=== PATIENT | female | born 1990 | race Caucasian/White ===

== ENCOUNTER → 2016-07-21 | Outpatient (CLI) | payer OTHER ==
[~2016-07-21] MED LIST: ACET-2267 PO; ACET1TAB43 PO; ALPR0.254 PO; AMOX500C2 PO; CITA10TA7 PO; DOCU100C37 PO; ERYT3.5O8 OD; FERR-74 PO; HYDR-3583 PO; HYDR1TAB PO; IBUP-1773 PO; IBUP-30 PO; NORG1TAB33 PO; PREN-37 PO; RANI150T90 PO
--- NOTE | 2016-07-21 19:48 | Diagnostic Imaging Report ---
INDICATION: Large for gestational age. TECHNIQUE: Multiple real-time grayscale images were obtained over the gravid uterus. COMPARISON: None FINDINGS: There is a single intrauterine . The heart rate is 123 beats per minute. The placenta is anterior. There is no placenta previa. position is cephalic. Amniotic fluid index is 14.9 cm. Biometrical measurements are as follows: Biparietal 9.4 cm, age 38 weeks 3 days. Head circumference 34.3 cm, age 39 weeks 5 days. Abdominal circumference 32.9 cm, age 36 weeks 6 days. Femur length 7.4 cm, age 37 weeks 5 days. Sonographic estimated age: 38 weeks 2 days. This compares to a gestational age of 37 weeks and 1 day based on provided CHANTAL of 08/10/16. Sonographic estimated date of delivery: 08/02/16. Estimated Weight: 3229 gm (+/- 471 gm). LMP percentile: 67%. heart rate: 123 beats per minute. number: 1 of 1. IMPRESSION: Live intrauterine . size is slightly larger than average, but within normal limits. Dictated by: Dictated on workstation # [id number]
== END ==
LOC: RAD 12:57
PROVIDERS: ATTEND Obstetrics & Gynecology
DX: O36.63X0 Maternal care for excessive fetal growth, third trimester, not applicable or unspecified (principal); Z3A.38 38 weeks gestation of pregnancy
CPT/HCPCS: 76816

== ENCOUNTER 2016-08-10 08:05 | Inpatient (IN) | payer OTHER ==
[2016-08-10] MEDS ORDERED: OXYTOCIN/NORMAL SALINE 500 ML IV SCH ×2 (08:46→13:16)
[2016-08-10] MEDS ORDERED: D5 LR IV SOLUTION 1,000 ML IV SCH (08:46)
[2016-08-10] MEDS ORDERED: LIDOCAINE/EPI 1%-1:200,000 (XYLOCAINE) 30 ML VIAL INJ PRN (09:00)
[2016-08-10] MEDS ORDERED: MINERAL OIL CONCENTRATE 99.9% 15 ML UDC TOP PRN (09:00)
[2016-08-10] MEDS ORDERED: BUPIVACAINE 0.25% 30 ML (SENSORCAINE) VIAL ONE (09:41)
[2016-08-10] MEDS ORDERED: fentaNYL INJECTION 100 MCG/2 ML AMP ONE (09:42)
[2016-08-10] MEDS ORDERED: LACTATED RINGERS 1,000 ML IV ONE ×2 (10:33)
[2016-08-10] MEDS ORDERED: fentaNYL INJECTION 100 MCG/2 ML AMP INJ ONE (10:45)
[2016-08-10] MEDS ORDERED: BUPIVACAINE 0.25% 30 ML (SENSORCAINE) VIAL INJ ONE (10:45)
[2016-08-10] MEDS ORDERED: NALOXONE 0.4 MG/ML 1 ML (NARCAN) VIAL IV PRN (10:45)
[2016-08-10] MEDS ORDERED: EPIDURAL (SUFENTA 0.6MCG/ML BUPIVA 0.125%) 100 ML BAG EPI PRN (10:45)
[2016-08-10] MEDS ORDERED: ONDANSETRON 4 MG/2 ML (SDV) Z0FRAN IV PRN (10:45)
[2016-08-10] MEDS ORDERED: LIDOCAINE PF 2% 5 ML (XYLOCAINE) VIAL ONE ×2 (11:57→12:37)
[2016-08-10] MEDS ORDERED: BENZOCAINE/MENTHOL (DERMOPLAST) 56 ML CAN TP ONE (13:08)
[2016-08-10] MEDS ORDERED: IBUPROFEN 600 MG (MOTRIN) TAB PO ONE (13:08)
[2016-08-10] MEDS: IBUPROFEN 600 MG (MOTRIN) TAB PO SCH ×2 (13:15→19:00)
[2016-08-10] MEDS ORDERED: BENZOCAINE/MENTHOL (DERMOPLAST) 56 ML CAN TP PRN (13:30)
[2016-08-10] MEDS ORDERED: TETANUS,DIPTH,PERTUSS P/F (BOOSTRIX) 0.5 ML VIAL IM ONE (13:30)
[2016-08-10] MEDS ORDERED: DIBUCAINE (NUPERCAINAL) 1% OINT 30 GM TOP PRN (13:30)
[2016-08-10] MEDS ORDERED: WITCH HAZEL(TUCKS) 40 EA JAR TOP PRN (13:30)
[2016-08-10] MEDS ORDERED: MEASLES,MUMPS,RUBELLA 1 EA INJ SQ ONE (13:30)
[2016-08-10] MEDS ORDERED: CATHETER FLUSH 10 ML SYR IV SCH ×2 (14:00)
[2016-08-10] MEDS ORDERED: FERR-84 PO (14:34)
[2016-08-10] MEDS ORDERED: PNV11TAB5 PO (14:34)
[2016-08-10] MEDS ORDERED: HYDROcodone/APAP 10 MG/325 MG (LORTAB) TAB PO ONE (15:45)
[2016-08-10] MEDS: DOCUSATE SODIUM 100 MG (COLACE) CAP PO SCH (20:11)
[2016-08-11] MEDS: IBUPROFEN 600 MG (MOTRIN) TAB PO SCH ×4 (00:33→17:33)
[2016-08-11] MEDS ORDERED: ACETAMINOPHEN 500 MG TAB (TYLENOL) PO PRN (05:15)
[2016-08-11] MEDS ORDERED: IBUP-1773 PO (06:29)
[2016-08-11] MEDS ORDERED: ACET-77 PO (06:29)
[2016-08-11] MEDS ORDERED: PRENATAL VITAMIN 1 EA TAB PO SCH (07:00)
[2016-08-11] MEDS ORDERED: FERROUS SULF 325 MG (IRON) TAB PO SCH (08:00)
[2016-08-11] MEDS: DOCUSATE SODIUM 100 MG (COLACE) CAP PO SCH (08:52)
== END 2016-08-11 20:55 | disposition home or self-care (01) | DRG 775 ==
DX: O80 Encounter for full-term uncomplicated delivery (principal); Z3A.40 40 weeks gestation of pregnancy; Z37.0 Single live birth

== ENCOUNTER 2017-02-10 07:16 | Emergency (ER) | payer OTHER ==
[~2017-02-10] VITALS: Ht 170.2 cm; Wt 95.3 kg
[~2017-02-10 07:16] MED LIST changes: +ACET-77 PO; +FERR-84 PO; +PNV11TAB5 PO
--- OUTSIDE RECORDS SUMMARY | 2017-02-10 07:22 | XMS REPORT | Continuity of Care Document ---
Author Author [facility] Organization [facility] Address Unknown Phone Unavailable Allergies Active Description Code Type Severity Reaction Onset Reported/Identified Relationship to Patient Clinical Status Yes No Known Drug Allergies [id number] Drug Allergy Unknown N/A 11/30/2007 Yes ethinyl estradiol [id number] Drug Allergy Unknown HIVES 08/10/2016 Yes ferrous fumarate [id number] Drug Allergy Unknown HIVES 08/10/2016 Yes norethindrone [id number] Drug Allergy Unknown HIVES 08/10/2016 Medications There is no data. Problems Date Dx Coded Attending Type Code Diagnosis Diagnosed By 08/28/2007 Ot 655.73 02/28/2010 Ot 918.1 02/28/2010 Ot E000.8 02/28/2010 Ot E849.8 02/28/2010 Ot E917.9 10/18/2011 Ot 217 12/17/2014 Ot 784.0 12/17/2014 Ot 611.72 12/17/2014 Ot 611.72 12/17/2014 Ot V72.63 12/17/2014 Ot V74.8 12/19/2014 ZACHERY RANDHAWA DO Ot D62 ACUTE POSTHEMORRHAGIC ANEMIA 12/19/2014 ZACHERY RANDHAWA DO Ot O99.03 ANEMIA COMPLICATING THE PUERPERIUM 12/19/2014 ZACHERY RANDHAWA DO Ot Z22.330 CARRIER OF GROUP B STREPTOCOCCUS 12/19/2014 ZACHERY RANDHAWA DO Ot Z23 ENCOUNTER FOR IMMUNIZATION 12/19/2014 ZACHERY RANDHAWA DO Ot Z37.0 SINGLE LIVE 05/28/2015 Ot 075 05/28/2015 Ot 784.0 05/28/2015 Ot 611.72 05/28/2015 Ot 611.72 05/28/2015 Ot V72.63 05/28/2015 Ot V74.8 07/24/2015 ERASMO GORE, JANY Granado Ot N20.1 CALCULUS OF URETER 08/15/2015 ERASMO GORE, JANY Granado Ot N20.1 CALCULUS OF URETER 07/23/2016 ZACHERY RANDHAWA DO Ot O36.63X0 MATERNAL CARE FOR EXCESS GROWTH, T 07/23/2016 ZACHERY RANDHAWA DO Ot Z3A.38 38 WEEKS GESTATION OF 08/09/2016 ZACHERY RANDHAWA DO Ot O36.63X0 MATERNAL CARE FOR EXCESS GROWTH, T 08/09/2016 ZACHERY RANDHAWA DO Ot Z3A.38 38 WEEKS GESTATION OF 08/11/2016 SYDNEE YOON ZACHERY Rosenbaum Ot O80 ENCOUNTER FOR FULL-TERM UNCOMPLICATED DE 08/11/2016 SYDNEE YOON ZACHERY Ilsa Ot Z37.0 SINGLE LIVE 08/11/2016 SYDNEE YOON ZACHERY Ilsa Ot Z3A.40 40 WEEKS GESTATION OF 09/13/2016 SYDNEE YOON ZACHERY Rosenbaum Ot O36.63X0 MATERNAL CARE FOR EXCESS GROWTH, T 09/13/2016 SYDNEE YOON ZACHERY Rosenbaum Ot Z3A.38 38 WEEKS GESTATION OF Procedures Code Description Performed By Performed On [id number] DELIVERY OF PRODUCTS OF CONCEPTION, EXTE 12/17/2014 [id number] DELIVERY OF PRODUCTS OF CONCEPTION, EXTE 08/10/2016 Results Test Result Range Complete urinalysis with reflex to culture - 08/10/16 08:10 Urine color determination YELLOW NRG Urine clarity determination CLEAR NRG Urine pH measurement by test strip 6.5 5-9 Specific gravity of urine by test strip 1.020 1.016- 1.022 Urine protein assay by test strip, semi-quantitative 1+ NEGATIVE Urine glucose detection by automated test strip NEGATIVE NEGATIVE Erythrocytes detection in urine sediment by light microscopy 1+ NEGATIVE Urine ketones detection by automated test strip 1+ NEGATIVE Urine nitrite detection by test strip NEGATIVE NEGATIVE Urine total bilirubin detection by test strip NEGATIVE NEGATIVE Urine urobilinogen measurement by automated test strip (mass/volume) 1 mg/dL NORMAL Urine leukocyte esterase detection by dipstick 2+ NEGATIVE Automated urine sediment erythrocyte count by microscopy (number/high power field) [HPF] NRG Automated urine sediment leukocyte count by microscopy (number/high power field ) [HPF] NRG Bacteria detection in urine sediment by light microscopy FEW NRG Squamous epithelial cells detection in urine sediment by light microscopy 5-10 NRG Crystals detection in urine sediment by light microscopy NONE NRG Casts detection in urine sediment by light microscopy NONE NRG Mucus detection in urine sediment by light microscopy SMALL NRG Complete urinalysis with reflex to culture YES NRG Bacterial urine culture - 08/10/16 08:10 URINE CULTURE RESULTS <10,000/ML NRG Complete blood count (CBC) with automated white blood cell (WBC) differential - 08/10/16 08:38 Blood leukocytes automated count (number/volume) 12.7 10*3/uL 4.3-11.0 Blood erythrocytes automated count (number/volume) 3.71 10*6/uL 4.35-5.85 Venous blood hemoglobin measurement (mass/volume) 10.6 g/dL 11.5-16.0 Blood hematocrit (volume fraction) 33 % 35-52 Automated erythrocyte mean corpuscular volume 88 [foz_us] 80-99 Automated erythrocyte mean corpuscular hemoglobin (mass per erythrocyte) 29 pg 25-34 Automated erythrocyte mean corpuscular hemoglobin concentration measurement ( mass/volume) 32 g/dL 32-36 Automated erythrocyte distribution width ratio 13.0 % 10.0-14.5 Automated blood platelet count (count/volume) 205 10*3/uL 130-400 Automated blood platelet mean volume measurement 11.2 [foz_us] 7.4-10.4 Automated blood neutrophils/100 leukocytes 77 % 42-75 Automated blood lymphocytes/100 leukocytes 15 % 12-44 Blood monocytes/100 leukocytes 7 % 0-12 Automated blood eosinophils/100 leukocytes 1 % 0-10 Automated blood basophils/100 leukocytes 0 % 0-10 Blood neutrophils automated count (number/volume) 9.7 10*3 1.8-7.8 Blood lymphocytes automated count (number/volume) 2.0 10*3 1.0-4.0 Blood monocytes automated count (number/volume) 0.8 10*3 0.0-1.0 Automated eosinophil count 0.2 10*3/uL 0.0-0.3 Automated blood basophil count (count/volume) 0.0 10*3/uL 0.0-0.1 Blood type T Indirect antibody screen panel - 08/10/16 08:38 ABO+Rh group AN NRG Transfusion band number [id number] NRG Blood group antibody screen NEGATIVE NRG Complete blood count (CBC) with automated white blood cell (WBC) differential - 08/11/16 06:56 Blood leukocytes automated count (number/volume) 11.8 10*3/uL 4.3-11.0 Blood erythrocytes automated count (number/volume) 3.51 10*6/uL 4.35-5.85 Venous blood hemoglobin measurement (mass/volume) 10.1 g/dL 11.5-16.0 Blood hematocrit (volume fraction) 31 % 35-52 Automated erythrocyte mean corpuscular volume 90 [foz_us] 80-99 Automated erythrocyte mean corpuscular hemoglobin (mass per erythrocyte) 29 pg 25-34 Automated erythrocyte mean corpuscular hemoglobin concentration measurement ( mass/volume) 32 g/dL 32-36 Automated erythrocyte distribution width ratio 13.1 % 10.0-14.5 Automated blood platelet count (count/volume) 159 10*3/uL 130-400 Automated blood platelet mean volume measurement 11.7 [foz_us] 7.4-10.4 Automated blood neutrophils/100 leukocytes 77 % 42-75 Automated blood lymphocytes/100 leukocytes 14 % 12-44 Blood monocytes/100 leukocytes 8 % 0-12 Automated blood eosinophils/100 leukocytes 1 % 0-10 Automated blood basophils/100 leukocytes 0 % 0-10 Blood neutrophils automated count (number/volume) 9.1 10*3 1.8-7.8 Blood lymphocytes automated count (number/volume) 1.6 10*3 1.0-4.0 Blood monocytes automated count (number/volume) 1.0 10*3 0.0-1.0 Automated eosinophil count 0.1 10*3/uL 0.0-0.3 Automated blood basophil count (count/volume) 0.0 10*3/uL 0.0-0.1 [facility] - 08/11/16 06:56 RH IMMUNE GLOBULIN [facility] PRSMD TRFSD 08/11/16 1720 NRG cell screen - 08/11/16 06:56 SCREEN LOT NUMBER [id number] NR Transfusion band number [id number] [facility] [id number] 1 300ug NRG Erythrocytes./1000 erythrocytes 09/09/16 NRG cell screen NEGATIVE NEGATIVE cell screen 08/12/18 NRG cell screen [id number] [facility] Lot number [id number] NR Encounters ACCT No. Visit Date/Time Discharge Status Pt. Type Provider Facility Loc./Unit Complaint [id number] 08/10/2016 08:05:00 08/11/2016 20:55:00 DIS Inpatient ZACHERY RANDHAWA DO [facility] LDRP INDUCTION [id number] 07/21/2016 12:57:00 07/21/2016 23:59:59 CLS Outpatient ZACHERY RANDHAWA DO [facility] RAD P08.1 [id number] 07/23/2015 18:15:00 07/24/2015 15:40:00 DIS Outpatient JANY ZIMMERMAN MD [facility] R URETERAL STONE [id number] 12/17/2014 08:38:00 12/19/2014 13:50:00 DIS Inpatient ZACHERY RANDHAWA DO [facility] LDRP INDUCTION [id number] 05/28/2015 09:43:00 Document Registration [id number] 05/28/2015 09:43:00 Document Registration [id number] 05/28/2015 09:43:00 Document Registration [id number] 05/28/2015 09:43:00 Document Registration [id number] 10/18/2011 05:54:00 Document Registration [id number] 10/10/2011 15:50:00 Document Registration [id number] 10/05/2011 14:48:00 Document Registration [id number] 03/03/2011 14:37:00 Document Registration [id number] 02/28/2010 11:10:00 Document Registration [id number] 08/28/2007 12:35:00 Document Registration [id number] 11/28/2006 07:28:00 Document Registration
[2017-02-10] MEDS ORDERED: ESCI10TA PO (07:40)
[2017-02-10 07:43] LABS: BILIRUBIN,URINE NEGATIVE (NEGATIVE); KETONES,URINE NEGATIVE (NEGATIVE); LEUKOCYTE ESTERASE ,URINE NEGATIVE (NEGATIVE); NITRITE,URINE NEGATIVE (NEGATIVE); PH,URINE 6 (5-9); PROTEIN,URINE NEGATIVE (NEGATIVE); UROBILINOGEN,URINE NORMAL (NORMAL)
[2017-02-10 07:51] LABS: BASOPHILS # (AUTO) 0.1 10^3/uL (0.0-0.1); BASOPHILS % (AUTO) 2 % (0-10); EOSINOPHILS # (AUTO) 0.2 10^3/uL (0.0-0.3); EOSINOPHILS % (AUTO) 4 % (0-10); LYMPHOCYTES # (AUTO) 2.1 X 10^3 (1.0-4.0); LYMPHOCYTES % (AUTO) 39 % (12-44); MEAN CORPUSCULAR HEMOGLOBIN 30 PG (25-34); MEAN CORPUSCULAR HGB CONC 33 G/DL (32-36); MEAN CORPUSCULAR VOLUME 88 FL (80-99); MEAN PLATELET VOLUME 10.1 FL (7.4-10.4); MONOCYTES # (AUTO) 0.6 X 10^3 (0.0-1.0); MONOCYTES % (AUTO) 11 % (0-12); NEUTROPHILS # (AUTO) 2.4 X 10^3 (1.8-7.8); NEUTROPHILS % (AUTO) 44 % (42-75); PLATELET COUNT 171 10^3/uL (130-400); RED BLOOD COUNT 4.31 10^6/uL (4.35-5.85); RED CELL DISTRIBUTION WIDTH 12.9 % (10.0-14.5); WHITE BLOOD COUNT 5.4 10^3/uL (4.3-11.0)
[2017-02-10] MEDS ORDERED: KETOROLAC 60 MG/2 ML VIAL IM ONE (08:00)
--- NOTE | 2017-02-10 08:05 | ED Back Pain ---
General Chief Complaint: Back Problems Stated Complaint: POSSIBLE KIDNEY STONE Nursing Triage Note: PT TO AMBULATES TO ROOM 10 CO OF R FLANK PAIN, PT STATES STARTED YESTERDAY, HAS HX OF KIDNEY STONE PAIN 08/29 Nursing Sepsis Screen: No Definite Risk Source of Information: Patient Exam Limitations: No Limitations History of Present Illness Time Seen by Provider: 08:01 Initial Comments The patient is a 26-year-old white female who relates that she began to have the right flank and low back pain late yesterday. It has continued. She has a past history of a large kidney stone about 1-1/2 years ago which ultimately required lithotripsy to pass. She has not seen any hematuria. The pain is intermittent. At times more severe and at other times more a pressure sensation. It is in the right costovertebral angle and distally at the sacroiliac area Timing/Duration: 12-24 Hours Pain/Injury Location: Back Associated Symptoms: lower back pain Allergies and Home Medications Allergies Coded Allergies: ethinyl estradiol (Verified Allergy, Unknown, HIVES, 08/10/16) ferrous fumarate (Verified Allergy, Unknown, HIVES, 08/10/16) norethindrone (Verified Allergy, Unknown, HIVES, 08/10/16) Home Medications Escitalopram Oxalate 10 Mg Tablet, 10 MG PO DAILY, (Reported) Constitutional: see HPI EENTM: no symptoms reported Cardiovascular: no symptoms reported Gastrointestinal: no symptoms reported Genitourinary: see HPI Musculoskeletal: back pain Skin: see HPI Psychiatric/Neurological: No Symptoms Reported, See HPI Past Knravmt-Xlzfqk-Upncgd Hx Patient Social History Alcohol Use: Rarely Uses Recreational Drug Use: No Smoking Status: Former Smoker Type Used: Cigarettes Former Smoker, Quit: Nov 20, 2015 Recent Foreign Travel: No Contact w/Someone Who Travel: No Recent Infectious Disease Expo: No Recent Hopitalizations: Yes Physical Abuse: No Sexual Abuse: No Immunizations Up To Date Tetanus Booster (TDap): Unknown PED Vaccines UTD: Yes Date of Influenza Vaccine: Nov 24, 2014 Seasonal Allergies Seasonal Allergies: No Surgeries History of Surgeries: Yes (BREAST BIOPSY (2011), LEEP) Surgeries: Breast, Tonsillectomy, Tubal Ligation Respiratory History of Respiratory Disorde: No Cardiovascular History of Cardiac Disorders: No Neurological History of Neurological Disord: No Reproductive System Last Menstrual Period: Jan 20, 2017 Hx Reproductive Disorders: No Sexually Transmitted Disease: No HIV/AIDS: No Female Reproductive Disorders: Denies [employer] History: Tubal Ligation Genitourinary History of Genitourinary Disor: No Gastrointestinal History of Gastrointestinal Di: No Musculoskeletal History of Musculoskeletal Dis: No Endocrine History of Endocrine Disorders: No HEENT History of HEENT Disorders: No Loss of Vision: Denies Hearing Impairment: Denies Cancer History of Cancer: No Psychosocial History of Psychiatric Problem: Yes Behavioral Health Disorders: Anxiety, Depression Suicide Risk Score: 0 Integumentary History of Skin or Integumenta: No Blood Transfusions History of Blood Disorders: No Adverse Reaction to a Blood Tr: No Family Medical History Family Medial History: Arthritis 19 MOTHER Hypercholesterolemia 19 MOTHER Hypertension 19 MOTHER Physical Exam Vital Signs Vital Sign - Last 12Hours 02/10/17 07:25 Temp 98.1 Pulse 88 Resp 18 B/P (MAP) 115/70 (85) Pulse Ox 98 Capillary Refill : NONE General Appearance: Mild Distress HEENT: Normal ENT Inspection Neck: Normal Inspection Cardiovascular: Regular Rate, Rhythm, No Edema, No Gallop, No JVD, No Murmur, Normal Peripheral Pulses Respiratory: Chest Non Tender, Lungs Clear, Normal Breath Sounds, No Accessory Muscle Use, No Respiratory Distress, Accessory Muscle Use Gastrointestinal: Normal Bowel Sounds, No Organomegaly, No Pulsatile Mass, Non Tender, Soft Back: CVA Tenderness (R) Extremity: Normal Capillary Refill, Normal Inspection, Normal Range of Motion, Non Tender, No Calf Tenderness, No Pedal Edema, Calf Tenderness Neurologic/Psychiatric: Alert, Oriented x3, No Motor/Sensory Deficits, Normal Mood/Affect, switchboard troubleshooter II-XII Norm as Tested, Abnormal Cerebellar Tests Progress/Results/Core Measures Results/Orders Lab Results Laboratory Tests Test 02/10/17 07:30 02/10/17 07:40 Range/Units Urine Color YELLOW Urine Clarity CLEAR Urine pH 6 5-9 Urine Specific [place] 1.015 L 1.016-1.022 Urine Protein NEGATIVE NEGATIVE Urine Glucose (UA) NEGATIVE NEGATIVE Urine Ketones NEGATIVE NEGATIVE Urine Nitrite NEGATIVE NEGATIVE Urine Bilirubin NEGATIVE NEGATIVE Urine Urobilinogen NORMAL NORMAL MG/DL Urine Leukocyte Esterase NEGATIVE NEGATIVE Urine RBC (Auto) NEGATIVE NEGATIVE Urine RBC NONE /HPF Urine WBC NONE /HPF Urine Squamous Epithelial Cells 10-25 H /HPF Urine Crystals NONE /LPF Urine Bacteria NEGATIVE /HPF Urine Casts NONE /LPF Urine Mucus NEGATIVE /LPF Urine Culture Indicated NO White Blood Count 5.4 4.3-11.0 10^3/uL Red Blood Count 4.31 L 4.35-5.85 10^6/uL Hemoglobin 12.7 11.5-16.0 G/DL Hematocrit 38 35-52 % Mean Corpuscular Volume 88 80-99 FL Mean Corpuscular Hemoglobin 30 25-34 PG Mean Corpuscular Hemoglobin Concent 33 32-36 G/DL Red Cell Distribution Width 12.9 10.0-14.5 % Platelet Count 171 130-400 10^3/uL Mean Platelet Volume 10.1 7.4-10.4 FL Neutrophils (%) (Auto) 44 42-75 % Lymphocytes (%) (Auto) 39 12-44 % Monocytes (%) (Auto) 11 0-12 % Eosinophils (%) (Auto) 4 0-10 % Basophils (%) (Auto) 2 0-10 % Neutrophils # (Auto) 2.4 1.8-7.8 X 10^3 Lymphocytes # (Auto) 2.1 1.0-4.0 X 10^3 Monocytes # (Auto) 0.6 0.0-1.0 X 10^3 Eosinophils # (Auto) 0.2 0.0-0.3 10^3/uL Basophils # (Auto) 0.1 0.0-0.1 10^3/uL Sodium Level 137 135-145 MMOL/L Potassium Level 4.2 3.6-5.0 MMOL/L Chloride Level 108 H 98-107 MMOL/L Carbon Dioxide Level 20 L 21-32 MMOL/L Anion Gap 9 5-14 MMOL/L Blood Urea Nitrogen 9 7-18 MG/DL Creatinine 0.70 0.60-1.30 MG/DL Estimat Glomerular Filtration Rate > 60 BUN/Creatinine Ratio 13 Glucose Level 89 70-105 MG/DL Calcium Level 8.2 L 8.5-10.1 MG/DL Total Bilirubin 0.4 0.1-1.0 MG/DL Aspartate Amino Transf (AST/SGOT) 31 5-34 U/L Alanine Aminotransferase (ALT/SGPT) 52 0-55 U/L Alkaline Phosphatase 95 40-136 U/L Total Protein 6.4 6.4-8.2 GM/DL Albumin 3.7 3.2-4.5 GM/DL My Orders Orders - ANUP COLES MD Cbc With Automated Diff (02/10/17 07:36) Comprehensive Metabolic Panel (02/10/17 07:36) Ua Culture If Indicated (02/10/17 07:36) Ct Abd/Pelvis Wo(Kidney Stone) (02/10/17 08:00) Ketorolac Injection (Toradol Injection) (02/10/17 08:00) Medications Given in ED Current Medications Medications Dose Ordered Sig/Meghann Route Start Time Stop Time Status Last Admin Dose Admin Ketorolac Tromethamine 60 mg ONCE ONCE IM 02/10/17 08:00 02/10/17 08:02 DC 02/10/17 08:14 60 MG Vital Signs/I&O Vital Sign - Last 12Hours 02/10/17 02/10/17 07:25 08:14 Temp 98.1 98.1 Pulse 88 Resp 18 B/P (MAP) 115/70 (85) Pulse Ox 98 Blood Pressure Mean: 85 Departure Communication (Admissions) Progress Notes CT scan returned with the report that there were no stones. In my view of the films multiple round calcifications of varying size were noted both right and left. These appeared to be uterine related. Impression Impression: Primary Impression: right lower quadrant pain Disposition: 01 HOME, SELF-CARE Condition: Stable/Unchanged Departure-Patient Inst. Decision time for Depature: 09:40 Referrals: BOWEN SHORE DO (PCP/Family) Primary Care Physician Add. Discharge Instructions: All discharge instructions reviewed with patient and/or family. Voiced understanding. Go to a clear liquid diet for the next 12 hours. Take ibuprofen 6-800 mg every 6 hours as needed. If symptoms persist see your provider ANUP COLES MD Feb 10, 2017 08:04
[2017-02-10 08:09] LABS: ALANINE AMINOTRANSFERASE 52 U/L (0-55); ALBUMIN 3.7 GM/DL (3.2-4.5); ANION GAP 9 MMOL/L (5-14); ASPARTATE AMINO TRANSFERASE 31 U/L (5-34); BILIRUBIN,TOTAL 0.4 MG/DL (0.1-1.0); BLOOD UREA NITROGEN 9 MG/DL (7-18); BUN/CREATININE RATIO 13; CALCIUM 8.2 MG/DL (8.5-10.1); CARBON DIOXIDE 20 MMOL/L (21-32); CHLORIDE 108 MMOL/L (98-107); GFR ESTIMATED > 60; GLUCOSE 89 MG/DL (70-105); POTASSIUM 4.2 MMOL/L (3.6-5.0); SODIUM 137 MMOL/L (135-145); TOTAL PROTEIN 6.4 GM/DL (6.4-8.2)
--- NOTE | 2017-02-10 08:59 | Diagnostic Imaging Report ---
PROCEDURE: CT urinary tract, rule out kidney stone. TECHNIQUE: Multiple contiguous axial images were obtained through the abdomen and pelvis without the use of intravenous contrast. INDICATION: Right side abdominal pain. History of kidney stones. COMPARISON: CT abdomen and pelvis without contrast 07/23/2015. FINDINGS: There is a 2 mm nonobstructing calyceal tip renal stone in the mid right kidney. The kidneys and collecting systems are otherwise negative. Calcifications in the pelvis consistent with phleboliths are stable compared to the 2016 exam. No evidence of ureteral stones or hydronephrosis. Lung bases are clear. The liver, gallbladder, pancreas, spleen, adrenals and appendix are negative on this noncontrast exam. The reproductive structures are grossly unremarkable. No free intraperitoneal air or fluid. No lymphadenopathy. No evidence of bowel obstruction. Osseous structures are unremarkable. IMPRESSION: No acute CT findings in the abdomen or pelvis. Specifically, no evidence of ureteral stones or hydronephrosis. Dictated by: Dictated on workstation # [id number]
[2017-02-10 09:44] VITALS: BP 115/70
== END 2017-02-10 09:44 | disposition home or self-care (01) ==
LOC: EDUNIT# 07:16 → ER 07:18
DX: R10.31 Right lower quadrant pain (principal); F41.9 Anxiety disorder, unspecified; F32.9 Major depressive disorder, single episode, unspecified; Z82.49 Family history of ischemic heart disease and other diseases of the circulatory system; Z87.19 Personal history of other diseases of the digestive system; Z87.891 Personal history of nicotine dependence; Z98.51 Tubal ligation status; Z90.89 Acquired absence of other organs
CPT/HCPCS: 36415; 74176; 80053; 81000; 85025; 99284

== ENCOUNTER 2019-08-29 15:17 | Emergency (ER) | payer OTHER ==
[~2019-08-29] VITALS: Ht 170 cm; Wt 92.0 kg
[~2019-08-29 15:17] MED LIST changes: -ACET-77 PO; +ACET-78 PO; +ESCI10TA PO; -FERR-74 PO; +FERR325T18 PO
[2019-08-29] MEDS ORDERED: diphenhydrAMINE 50 MG/ML INJ (BENADRYL) IV STA (16:12)
[2019-08-29] MEDS ORDERED: PROMETHAZINE INJ 25 MG/ML (PHENERGAN) AMP IVP STA (16:12)
[2019-08-29] MEDS ORDERED: NS IV 1000 ML 1,000 ML IV STA (16:12)
[2019-08-29] MEDS ORDERED: KETOROLAC 30 MG/ML VIAL IVP STA (16:12)
[2019-08-29] MEDS ORDERED: DEXAMETHASONE 10 MG/ML (DECADRON) 1 ML VIAL IV ONE (16:15)
--- NOTE | 2019-08-29 16:23 | ED Headache ---
General Chief Complaint: Head/Cervical Problems Stated Complaint: MIGRAINE X 3 DAYS Nursing Triage Note: ARRIVED VIA AMB TO ROOM 02 WITH COMPLAINTS OF MIGRAINE X3 DAYS. NO HX OF MIGRAINES. Nursing Sepsis Screen: No Definite Risk Source: patient Exam Limitations: no limitations History of Present Illness Date Seen by Provider: Aug 29, 2019 Time Seen by Provider: 15:56 Initial Comments Here with report of frontal headache that actually goes to all around the head now for the last 3 days. She has been taking ibuprofen and Aleve and Tylenol wit hout improvement. She did take 400 mg of ibuprofen at 6 AM and 1 Aleve. She repeated that at noon. That has not stopped a headache. Denies fever or chills. She does smoke. She has had some headaches before although this is longer lasting. Has nausea due to pain but no vomiting. Denies sore throat or runny nose. Denies significant nasal congestion. Timing/Duration: increasing, other (3 days) Severity/Quality: moderate, pressure Location: frontal, temporal, occipital, parietal Prior Headaches/Recent Trauma: occasional headaches Modifying Factors: improves with rest Associated Symptoms: No confusion, No fever/chills, No nasal drainage, No seizures, No stiff neck, No weakness Allergies and Home Medications Allergies Coded Allergies: ethinyl estradiol (Verified Allergy, Unknown, HIVES, 08/10/16) ferrous fumarate (Verified Allergy, Unknown, HIVES, 08/10/16) norethindrone (Verified Allergy, Unknown, HIVES, 08/10/16) Home Medications Escitalopram Oxalate 10 Mg Tablet, 10 MG PO DAILY, (Reported) Patient Home Medication List Home Medication List Reviewed: Yes Review of Systems Review of Systems Constitutional: see HPI; No chills, No fever Eyes: See HPI Ears, Nose, Mouth, Throat: see HPI; denies ear pain Respiratory: No cough, No short of breath, No wheezing Cardiovascular: no symptoms reported Gastrointestinal: No abdominal pain, No nausea, No vomiting Genitourinary: no symptoms reported Musculoskeletal: no symptoms reported All Other Systems Reviewed Negative Unless Noted: Yes Past Gwnvyyz-Qrhpex-Detzcu Hx Past Med/Social Hx: Reviewed Nursing Past Med/Soc Hx Patient Social History Alcohol Use: Occasionally Uses Recreational Drug Use: No Smoking Status: Current Everyday Smoker Type Used: Cigarettes Former Smoker, Quit: Nov 20, 2015 Recent Foreign Travel: No Contact w/Someone Who Travel: No Recent Infectious Disease Expo: No Recent Hopitalizations: Yes Immunizations Up To Date Tetanus Booster (TDap): Unknown PED Vaccines UTD: Yes Date of Influenza Vaccine: Nov 24, 2014 Seasonal Allergies Seasonal Allergies: No Past Medical History Surgeries: Yes (BREAST BIOPSY (2012), LEEP) Breast, Tonsillectomy, Tubal Ligation Respiratory: No Cardiac: No Neurological: No : No Last Menstrual Period: Aug 27, 2019 Reproductive Disorders: No 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 Sexually Transmitted Disease: No HIV/AIDS: No Genitourinary: No Gastrointestinal: No Musculoskeletal: No Endocrine: No HEENT: No Loss of Vision: Denies Hearing Impairment: Denies Cancer: No Psychosocial: Yes Anxiety, Depression Integumentary: No Blood Disorders: No Adverse Reaction/Blood Tranf: No Family Medical History Reviewed Nursing Family Hx Arthritis 19 MOTHER Hypercholesterolemia 19 MOTHER Hypertension 19 MOTHER Physical Exam Vital Signs Vital Signs - First Documented 08/29/19 15:42 Temp 36.6 Pulse 69 Resp 18 B/P (MAP) 118/78 (91) Pulse Ox 99 O2 Delivery Room Air Capillary Refill : Less Than 3 Seconds Height, Weight, BMI Height: 5'7.00" Weight: 210lbs. 2.0oz. 95.975798dg; 31.00 BMI Method:Stated General Appearance: WD/WN, no apparent distress HEENT: PERRL/EOMI, TMs normal, pharynx normal Neck: non-tender, full range of motion, supple Cardiovascular: regular rate, rhythm, no murmur Respiratory: lungs clear, normal breath sounds Gastrointestinal: non tender, soft Extremities: non-tender, normal inspection Psychiatric: alert, oriented x 3 Crainal Nerves: normal hearing, normal speech, PERRL Coordination/Gait: normal gait Motor/Sensory: no motor deficit, no sensory deficit Skin: normal color, warm/dry Progress/Results/Core Measures Results/Orders My Orders Orders - LUIS EDUARDO BLISS MD Ct Head Wo (08/29/19 16:12) Promethazine Injection (Phenergan Injec (08/29/19 16:12) Ns Iv 1000 Ml (Sodium Chloride 0.9%) (08/29/19 16:12) Ed Iv/Invasive Line Start (08/29/19 16:12) Diphenhydramine Injection (Benadryl Inje (08/29/19 16:12) Dexamethasone Injection (Decadron Inject (08/29/19 16:15) Ketorolac Injection (Toradol Injection) (08/29/19 16:12) Medications Given in ED Current Medications Medications Dose Ordered Sig/Meghann Route Start Time Stop Time Status Last Admin Dose Admin Dexamethasone Sodium Phosphate 10 mg ONCE ONCE IV 08/29/19 16:15 08/29/19 16:16 DC 08/29/19 16:31 10 MG Vital Signs/I&O 08/29/19 15:42 Temp 36.6 Pulse 69 Resp 18 B/P (MAP) 118/78 (91) Pulse Ox 99 O2 Delivery Room Air Blood Pressure Mean: 91 Progress Progress Note : Progress Note Seen and evaluated. IV, normal saline 1 L bolus, Phenergan 25 mg IV, Benadryl 25 mg IV, Toradol 15 mg IV and Decadron 10 mg IV ordered. We will get CT of the head to evaluate for structural issues versus sinusitis. Patient agrees. Monitor patient. 1715 doing better but still with a little bit of a headache. Hydrocodone 5/325 milligrams one tab by mouth given. Discharged home with return precautions. Patient verbalize understanding instructions and agreement with plan. Diagnostic Imaging Diagonstic Imaging: CT Plain Films/CT/US/NM/MRI: head Comments [facility] [place], [place] NAME: JENNIE MCCORMACK MED REC#: [id number] PT STATUS: REG ER : 1990 PHYSICIAN: LUIS EDUARDO BLISS MD ADMIT DATE: 08/29/19/ER Signed Date of Exam:08/29/19 CT HEAD WO INDICATION: Severe headache. TECHNIQUE: Routine non contrast-enhanced axial images were obtained from the skull base to the vertex. Auto Exposure Controls were utilized during the CT exam to meet ALARA standards for radiation dose reduction COMPARISON: 03/03/2011. FINDINGS: The ventricles and cortical sulci are normal in size and contour. There is no midline shift or mass-effect. No acute intra-axial hemorrhage is seen. There are no abnormal areas of increased or decreased density to suggest acute hemorrhage or edema. No extra-axial masses or collections are present. The bony calvarium is intact. The visualized paranasal sinuses are unremarkable. The mastoid air cells are clear. IMPRESSION: 1. No acute intracranial abnormality. No CT evidence of mass, acute infarct or intracranial hemorrhage. Dictated by: Dictated on workstation # [id number] Dict: 08/29/191653 Trans: 08/29/191701 [id number] Interpreted by: VAHE GORE MD Electronically signed by: VAHE GORE MD 08/29/191701 Departure Impression Primary Impression: Headache Qualified Codes: R51 - Headache Disposition: 01 HOME, SELF-CARE Condition: Improved Departure-Patient Inst. Decision time for Depature: 17:17 Referrals: BOWEN SHORE DO (PCP/Family) Primary Care Physician Patient Instructions: Headache, Adult, Tension Headache (DC) Add. Discharge Instructions: All discharge instructions reviewed with patient and/or family. Voiced understanding. May take Tylenol/acetaminophen up to 1000 mg every 6-8 hours as needed for pain. Do not exceed 4000 mg in 24 hours. You may take ibuprofen or Aleve but do not take both as they're both the same class of medicine. You may take up to 600 mg of ibuprofen every 8 hours as needed for pain or you may take 2 Aleve tablets every 12 hours as needed for pain maximally. Do not exceed this dose. Plenty of fluids and get some rest. Follow-up with your later this week or early next week for recheck and further evaluation. Return for worse pain, fever, vomiting, vision or balance problems, weakness or other concerns as needed. Work/School Note: Work Release Form Date Seen in the Emergency Department: Aug 29, 2019 Return to Work: Aug 30, 2019 Restrictions: No Restrictions LUIS EDUARDO BLISS MD Aug 29, 2019 16:23
--- NOTE | 2019-08-29 16:59 | Diagnostic Imaging Report ---
INDICATION: Severe headache. TECHNIQUE: Routine non contrast-enhanced axial images were obtained from the skull base to the vertex. Auto Exposure Controls were utilized during the CT exam to meet ALARA standards for radiation dose reduction COMPARISON: 03/03/2011. FINDINGS: The ventricles and cortical sulci are normal in size and contour. There is no midline shift or mass-effect. No acute intra-axial hemorrhage is seen. There are no abnormal areas of increased or decreased density to suggest acute hemorrhage or edema. No extra-axial masses or collections are present. The bony calvarium is intact. The visualized paranasal sinuses are unremarkable. The mastoid air cells are clear. IMPRESSION: 1. No acute intracranial abnormality. No CT evidence of mass, acute infarct or intracranial hemorrhage. Dictated by: Dictated on workstation # [id number]
--- NOTE | 2019-08-29 17:12 | NUR ---
IN TALKING TO THE PT AT THIS TIME.
[2019-08-29] MEDS ORDERED: HYDROcodone/APAP 5 MG/325 MG (LORTAB) TAB PO ONE (17:15)
[2019-08-29 17:28] VITALS: BP 120/70
== END 2019-08-29 17:28 | disposition home or self-care (01) ==
LOC: EDUNIT# 15:17 → ER 15:18
DX: R51 Headache (principal); F41.9 Anxiety disorder, unspecified; F32.9 Major depressive disorder, single episode, unspecified; F17.210 Nicotine dependence, cigarettes, uncomplicated; Z82.49 Family history of ischemic heart disease and other diseases of the circulatory system; Z88.8 Allergy status to other drugs, medicaments and biological substances
CPT/HCPCS: 70450

== ENCOUNTER 2022-08-29 20:31 | Emergency (ER) | payer OTHER ==
[~2022-08-29] VITALS: Ht 170 cm; Wt 90.7 kg
[~2022-08-29 20:31] MED LIST changes: +ACET-11 PO; -ACET1TAB43 PO; +ALPR.25T PO; -ALPR0.254 PO; -CITA10TA7 PO; +CITA10TA9 PO
[2022-08-29 20:38] VITALS: BP 145/95
--- NOTE | 2022-08-29 21:12 | ED Upper Extremity ---
General Chief Complaint: Upper Extremity Stated Complaint: RIGHT SHOULDER/NECK PAIN Nursing Triage Note: NECK INJURY 3 WEEKS AGO, OVER THE LAST FOUR DAYS NECK/SHOULDER RT SIDED. UNABLE TO DO ROM. NO KNOWN RECENT INJURY Source: patient Exam Limitations: no limitations (KIA MONTGOMERY) History of Present Illness Date Seen by Provider: Aug 29, 2022 Time Seen by Provider: 21:10 Initial Comments Patient is a 32-year-old female who presents the ED with right-sided neck pain radiates down into her right posterior elbow. Patient states symptoms started when she woke up. Pain starts at the base her neck is radiate down to the posterior forearm/elbow. She states she gets twitching of her arm. Denies of any specific injury. Similar symptoms in the past. She saw her primary care physician provided her Solu-Medrol Dosepak, muscle relaxer, meloxicam without much improvement. She denies any headache, visual changes, bowel or urine continence, saddle paresthesia, fever, night sweats. Denies of any specific injury. Normal active range of motion the right shoulder. (KIA MONTGOMERY) Allergies and Home Medications Allergies Coded Allergies: ethinyl estradiol (Verified Allergy, Unknown, HIVES, 08/10/16) ferrous fumarate (Verified Allergy, Unknown, HIVES, 08/10/16) norethindrone (Verified Allergy, Unknown, HIVES, 08/10/16) Patient Home Medication List Home Medication List Reviewed: Yes (KIA MONTGOMERY) Escitalopram Oxalate (Lexapro) 10 Mg Tablet, 10 MG PO DAILY, (Reported) Entered as Reported by: MAGNUS SCHMITZ on 02/10/17 0740 Review of Systems Constitutional: No diaphoresis, No fever, No malaise, No weakness EENTM: No hearing loss, No ear pain, No vision loss, No mouth pain, No mouth swelling, No throat pain, No throat swelling Respiratory: No cough, No dyspnea on exertion Cardiovascular: No chest pain Gastrointestinal: No abdominal pain, No diarrhea, No nausea, No vomiting Genitourinary: No decreased output, No discharge Musculoskeletal: No back pain; joint pain, joint swelling, muscle pain Skin: No change in color (KIA MONTGOMERY) All Other Systems Reviewed Negative Unless Noted: Yes (KIA MONTGOMERY) Past Hvmraoe-Vfvtmo-Kwewsr Hx Immunizations Up To Date Tetanus Booster (TDap): Unknown PED Vaccines UTD: Yes Influenza Vaccine Up-to-Date: No; Not Current (KIA MONTGOMERY) Seasonal Allergies Seasonal Allergies: No (KIA MONTGOMERY) Past Medical History Surgeries: Yes (BREAST BIOPSY (2012), LEEP) Breast, Tonsillectomy, Tubal Ligation Respiratory: No Cardiac: No Neurological: No Reproductive Disorders: No 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 Sexually Transmitted Disease: No HIV/AIDS: No Genitourinary: No Gastrointestinal: No Musculoskeletal: No Endocrine: No HEENT: No Loss of Vision: Denies Hearing Impairment: Denies Cancer: No Psychosocial: Yes Anxiety, Depression Integumentary: No Blood Disorders: No Adverse Reaction/Blood Tranf: No (KIA MONTGOMERY) Family Medical History Arthritis 19 MOTHER Hypercholesterolemia 19 MOTHER Hypertension 19 MOTHER Physical Exam Vital Signs Vital Signs - First Documented 08/29/22 20:38 Temp 36.9 Pulse 102 Resp 20 B/P (MAP) 145/95 (112) Pulse Ox 100 (SYLVIA BARCLAY MD) Vital Signs Capillary Refill : (KIA MONTGOMERY) Height, Weight, BMI Height: 5'7.00" Weight: 210lbs. 2.0oz. 95.703869jc; 31.00 BMI Method:Stated General Appearance: WD/WN, no apparent distress HEENT: PERRL/EOMI, normal ENT inspection, TMs normal, pharynx normal Neck: full range of motion, other (Right-sided cervical paraspinal muscle tenderness. Negative Spurling sign. Right cervical lower midline tenderness.) Cardiovascular: regular rate, rhythm, no edema, no gallop, no JVD Respiratory: chest non-tender, lungs clear, normal breath sounds, no respiratory distress, no accessory muscle use Gastrointestinal: normal bowel sounds, non tender, soft, no organomegaly Back: normal inspection, no CVA tenderness, no vertebral tenderness Shoulder: normal inspection, non-tender, no evidence of injury Elbow/Forearm: normal inspection, non-tender, no evidence of injury, normal ROM, Right Wrist: Yes normal inspection, Yes non-tender Hand: normal inspection, non-tender, no evidence of injury, Right 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 She denies of any specific injury. She reports history of similar symptoms. She is concerned as she is getting sharp shooting pain down into her right posterior forearm/elbow. She states pain starts from the base of her neck. She states she woke up with the pain. On exam no evidence of torticollis. Exam of the right arm shows no evidence of right-sided arm weakness. She has no chest pain or shortness of breath, headache, visual changes. She cannot recall any specific injury. No meningeal signs. Afebrile. Denies any drug use. Saw her primary care physician placed on Solu-Medrol Dosepak, cyclobenzaprine, meloxicam without much improvement. She did receive a dose of hydrocodone here with Toradol. She did have some tenderness to the right cervical paraspinal muscle. Negative Spurling sign but did have some pain and discomfort. Differential diagnosis cervical radiculopathy, cervical muscle strain, trigger point. Did offer CT scan of the neck however this is slightly limited. Due to no specific injury no evidence suggesting a cause of a fracture , carotid artery injury, imaging was held. She states she is scheduled follow-up her primary care physician tomorrow. Further evaluation with MRI versus EMG would likely be more beneficial. She agrees. We will provide a few days worth of pain medication. Follow-up with your appointment tomorrow. Discussed heating, ice, stretching. She appears to be having more muscle spasm ing but cannot rule out cervical impingement from bulging disc. Discussed stretching exercises. Return precautions were discussed such as loss of motor function, worsening pain. Patient has no flulike symptoms. No evidence of bruit. No specific injuries suggesting carotid artery dissection. No specific stroke risk factors (KIA MONTGOMERY) Impression Primary Impression: Cervical radiculopathy Disposition: HOME, SELF-CARE Condition: Stable Departure-Patient Inst. Decision time for Depature: 21:33 (KIA MONTGOMERY) Referrals: BOWEN SHORE DO (PCP/Family) Primary Care Physician Patient Instructions: Radiculopathy (DC) ATTENDING PHYSICIAN NOTE: I was physically present as attending physician in the emergency department during the care of this patient, but I was not directly involved in the decision making or delivery of care for this patient. (SYLVIA BARCLAY MD) KIA MONTGOMERY Aug 29, 2022 21:12 SYLVIA BARCLAY MD Aug 31, 2022 04:43
[2022-08-29] MEDS ORDERED: KETOROLAC 30 MG/ML VIAL IM ONE (21:15)
== END 2022-08-29 21:58 | disposition home or self-care (01) ==
LOC: EDUNIT# 20:31 → ER 20:33
DX: M54.12 Radiculopathy, cervical region (principal); Z28.310 Unvaccinated for COVID-19
CPT/HCPCS: 99284

== ENCOUNTER 2022-09-13 09:11 | Outpatient (RCR) | payer OTHER ==
[~2022-09-13 09:11] MED LIST changes: +BUPR150T24; +CITA10TA9; +CYCL10TA25; +DICL75TA2
== END 2022-09-19 | disposition home or self-care (01) ==
PROVIDERS: ATTEND Family Medicine
DX: M54.12 Radiculopathy, cervical region (principal); Z78.0 Asymptomatic menopausal state

== ENCOUNTER 2022-09-20 08:26 | Outpatient (RCR) | payer OTHER | END 2022-10-20 | disposition home or self-care (01) | PROVIDERS: ATTEND Family Medicine | DX: M54.12 Radiculopathy, cervical region (principal) ==

== ENCOUNTER → 2022-10-21 | Outpatient (CLI) | payer OTHER ==
--- NOTE | 2022-10-21 09:35 | Diagnostic Imaging Report ---
INDICATION: Neck pain Cervical spine AP and lateral views of the cervical spine show a slight reversal of the lordotic curvature. Alignment is normal. Disc spaces are well-maintained. Odontoid is intact. Atlantoaxial relationship appears normal. There is no fracture or prevertebral soft tissue swelling. IMPRESSION: Reverse curvature of the cervical spine likely due to muscle spasm. Dictated by: Dictated on workstation # [id number]
== END ==
LOC: RAD 08:45
PROVIDERS: ATTEND Nurse Practitioner Family
DX: M43.8X2 Other specified deforming dorsopathies, cervical region (principal)
CPT/HCPCS: 72040